=== PATIENT | female | born 1950 | race African-American/Black ===

== ENCOUNTER 2019-06-02 09:40 | Observation (INO) | payer OTHER, MEDICARE ==
--- NOTE | 2019-06-02 10:21 | PDOC ---
Documentation entered by Emmanuelle Fernandez SCRIBE, acting as scribe for Bettina Herrera MD. Bettina Herrera MD: This documentation has been prepared by the Jim lion Adrianna, SCRIBE, under my direction and personally reviewed by me in its entirety. I confirm that the documentation accurately reflects all work, treatment, procedures, and medical decision making performed by me. History of Present Illness - General Chief Complaint: Chest Pain Stated Complaint: LIGHT HEADED Time Seen by Provider: 06/02/19 09:49 History Source: Patient Exam Limitations: No Limitations - History of Present Illness Initial Comments: The patient is a 68 year old female, with a PMH of HTN, HLD, OA, and coronary arteriosclerosis, renal cysts presenting with dizziness and lightheadedness for 4 days. Patient complains of progressively worsening lightheadedness, as if she is going to pass out. Patient reports feeling dizzy, which has made her feel wobbly when she is getting up and walking. Her symptoms are worse with ambulation and alleviated when lying flat. She notes that her symptoms were worse today, and she is unable to walk secondary to her unsteady gait (in fear of falling). Patient endorses associated midsternal chest tightness, sore throat , and headache (which she had intermittently at baseline). Patient reports having a stress test done last month, which she notes was normal. She denies any history of similar symptoms. Denies fever, SOB, palpitation, weakness, N, V, D, abdominal pain, bladder and bowel problems, leg swelling, cough, runny nose, rash, falls, room-spinning, changes in vision, blurred vision, ringing in ears, numbness or tingling of extremities. No sick contacts or travel. No new changes in medications. No suspicious food intake. Allergies: None Past Medical History: as documented in EMR/HPI Social history: Lives with family. No tobacco, ETOH or drug use. Surgical history: None reported Meds: as documented in EMR Family history: noncontributory PMD: Dr. Salamanca Clay Artist: Dr. Helm 06/02/19 11:31 Past History - Past Medical History Allergies/Adverse Reactions: Allergies Allergy/AdvReac Type Severity Reaction Status Date / Time No Known Allergies Allergy Verified 06/02/19 09:45 Home Medications: Ambulatory Orders Alendronate Na [Fosamax (Weekly)] 70 mg PO WEEKLY 11/30/13 Gabapentin 300 mg PO BID 11/30/13 Metoprolol Tartrate [Lopressor -] 100 mg PO DAILY 11/30/13 Oxycodone HCl/Acetaminophen [Percocet 5-325 mg Tablet] 1 combo PO PRN PRN Spironolactone 25 mg PO BID 11/30/13 Telmisartan/Hydrochlorothiazid [Micardis Hct 80-12.5 mg Tablet] 1 each PO DAILY 11/30/13 Verapamil HCl [Verapamil ER] 240 mg PO DAILY 11/30/13 Cholecalciferol (Vitamin D3) [Vitamin D3] 1,000 unit PO DAILY 03/07/15 Meloxicam [Mobic -] 15 mg PO HS 03/07/15 Anemia: No Asthma: No Cancer: No Cardiac Disorders: Yes (CORONARY ARTERIOSCLEROSIS) CVA: No COPD: No CHF: No Dementia: No Diabetes: No GI Disorders: No Disorders: No HTN: Yes Hypercholesterolemia: Yes Liver Disease: No Seizures: No Thyroid Disease: No - Surgical History Abdominal Surgery: No Appendectomy: No Cardiac Surgery: No Cholecystectomy: No Lung Surgery: No Neurologic Surgery: No Orthopedic Surgery: No - Immunization History Immunization Up to Date: Yes - Psycho Social/Smoking Cessation Hx Smoking History: Never smoked Have you smoked in the past 12 months: No Information on smoking cessation initiated: No Hx Alcohol Use: No Drug/Substance Use Hx: No Substance Use Type: None Hx Substance Use Treatment: No Review of Systems - Review of Systems Comments:: Constitutional: no fevers or chills. No weakness HEENT: +Dizziness, causing a wobbly gait. +Sore throat. + headache. No congestion. No visual/hearing disturbances. no eye pain. no ear pain. no blindness. CVS: +Midsternal chest tightness. no syncope. Resp: no sob. No cough. Gastrointestinal: no abdominal pain, nausea or vomiting. Genitourinary: no urinary sx, hematuria. no frequency or urgency. MUSCULOSKELETAL: No joint pain and swelling. No neck or back pain. SKIN: no redness or skin changes, no discharge, no rash. No wounds. Hematologic: no easy bruising/bleeding. NEUROLOGIC: +Dizziness, unsteady gait, imbalance. +Lightheadedness, + Headache. No LOC or altered mental status. No weakness, numbness or tingling. Psych: no anxiety or depression Allergic/Immunologic: no allergies All other systems reviewed and negative, or as documented in HPI. 06/02/19 11:31 06/02/19 11:32 *Physical Exam - Vital Signs Last Vital Signs Temp Pulse Resp BP Pulse Ox 97.8 F 82 19 126/72 99 06/02/19 09:41 06/02/19 09:41 06/02/19 09:41 06/02/19 09:41 06/02/19 09:41 - Physical Exam Comments: General: Well appearing, awake and alert, NAD. HEENT: +Right-sided nystagmus. NCAT, PERRL, clear conjunctiva, anicteric, moist mucus membranes, clear oropharynx, no oral lesions. Neck: neck supple, FROM Resp: CTAB, normal and even respirations, no respiratory distress CVS: RRR, no murmurs, 2+ peripheral pulses throughout, no peripheral edema Abdomen: soft, NTND, no rebound or guarding. No CVAT. Back: nontender, normal inspection and ROM MSK: no edema, HERNANDEZ x4, ROM intact. No clubbing or cyanosis. normal bulk and tone. Extremities: no calf tenderness Neuro: Alert, oriented to person, time and place. No carotid bruit, CN II-XII grossly intact. Strength prox and distally 5/5 throughout. Sensation grossly intact to light touch. HERNANDEZ x4. no dysmetria, bilateral finger to nose and heel to berg equal and symmetric. Speech clear. unstable gait, wobbly. Psych: Calm and cooperative Skin: warm and well perfused, cap refill <2 sec, normal color 06/02/19 11:32 Heart Score/ECG Review #1 ECG reviewed & interpreted by me at: 09:50 General ECG Interpretation: Sinus Rhythm, Normal Rate, Normal Intervals Compared to previous ECG there are: No significant change 06/02/19 10:21 EKG normal sinus rhythm at 77 bpm, no interval abnormalities, narrow QRS, ST and T wave segments and morphology normal. left axis deviation, poor r wave progression. ED Treatment Course - LABORATORY CBC & Chemistry Diagram: 06/02/19 11:18 06/02/19 11:18 - RADIOLOGY Radiology Studies Ordered: Category Date Time Status HEAD CT WITHOUT CONTRAST [CT] Stat CT Scan 06/02/19 10:08 Ordered CHEST PA & LAT [RAD] Stat Radiology 06/02/19 09:50 Ordered Radiograph Interpretation: EXAM#: TYPE/EXAM: RESULT: [id number] CT/HEAD CT WITHOUT CONTRAST REASON FOR THE STUDY. Evaluate for mass, CVA. IMPRESSION: No evidence of acute intracranial hemorrhage. No CT evidence of acute territorial, acute transcortical infarct. Reported By: Jeremiah Mi MD 06/02/19 12:55 Medical Decision Making - Medical Decision Making 06/02/19 10:19 See HPI for details. Prior notes reviewed, including admissions, discharges and consultations. Vital signs reviewed, wnl. Vital Signs Temp Pulse Resp BP Pulse Ox 97.8 F 82 19 126/72 99 06/02/19 09:41 06/02/19 09:41 06/02/19 09:41 06/02/19 09:41 06/02/19 09:41 DDX CVA< post circ stroke, electrolyte/metabolic derangements, ACS, arrhythmia, [employer] lesion/mass laboratory results and imaging reviewed, basic labs and lytes wnl, CXR_no acute chest pathology Cardiac panel_neg, reassuring, doubt cardiac EKG normal sinus rhythm at 77 bpm, no interval abnormalities, narrow QRS, ST and T wave segments and morphology normal. left axis deviation, poor r wave progression. ED course - no events, unable to ambulate due to gait instability and dizziness - consults and recommendations: neurology, Dr Green - discussed case, will see cs note/recs, will come to evaluate. - unsafe for discharge, unable to ambulate no tpa indicated, last normal 4 days ago, NIHSS zero. initial head CT neg for acute abnormalities, CVA/bleed or mass. warrants MRI brain to eval for post circ CVA given neuro sx. Admit for CVA/neuro workup, dizziness, PT eval, neuro cs, gait instability. Discussed results and management plan with pt and family member at bedside, agree with impression, treatment indications, recommendations and plan. s/o to Dr Pollock regarding admission 06/02/19 11:33 06/02/19 12:36 06/02/19 13:09 06/02/19 14:01 Discharge - Discharge Information Problems reviewed: Yes Clinical Impression/Diagnosis: Gait instability, Dizziness Condition: Guarded - Admission Yes - Follow up/Referral - Patient Discharge Instructions - Post Discharge Activity NIH Stroke Scale - Last Known Well Date/Time & Onset Date Last Known Well: 05/30/19 - Initial Evaluation Level of consciousness: Alert Ask patient the month and their age: Answers both correctly Ask patient to open & close eyes; make fist and let go: Obeys both correctly Best gaze (horizontal eye movement): Normal Visual field testing: No visual field loss Facial paresis (Show teeth/raise eyebrows/close eyes tight): Normal symmetrical movement Motor Function: Left Arm: Normal Motor Function: Right Arm: Normal (extends arm 90 (or 45) degrees for 10 seconds without drift Motor Function: Left Leg: Normal (extends leg 30 degrees for 5 seconds without drift) Motor Function: Right Leg: Normal (extends leg 30 degrees for 5 seconds without drift) Limb Ataxia: No ataxia Sensory(Use pinprick test arms,legs,trunk,face/side to side): Normal Best language (Describe picture, name items, read sentences): No Aphasia Dysarthria (read several words): Normal articulation Extinction and Inattention: No abnormality - Total Score NIH Stroke Scale Score: 0
[2019-06-02 11:47] LABS: BASO % 0.9 % (0-2.0); HEMATOCRIT 36.9 % (32.4-45.2); HEMOGLOBIN 12.2 GM/dL (10.7-15.3); MCH 29.9 pg (25.7-33.7); MCHC 33.1 g/dl (32.0-36.0); MEAN CELL VOLUME 90.3 fl (80-96); MEAN PLT VOLUME 7.2 fl (7.5-11.1); NEUT % 69.1 % (42.8-82.8); PLATELET COUNT 315 K/MM3 (134-434); RBC 4.08 M/mm3 (3.60-5.2); RDW 14.1 % (11.6-15.6); WHITE BLOOD COUNT 6.7 K/mm3 (4.0-10.0)
[2019-06-02 12:23] LABS: ALBUMIN 3.6 g/dl (3.4-5.0); BILIRUBIN,TOTAL 0.4 mg/dL (0.2-1); BLOOD UREA NITROGEN 17.2 mg/dL (7-18); CALCIUM 9.3 mg/dL (8.5-10.1); CREATININE 0.9 mg/dL (0.55-1.3); MAGNESIUM 2.2 mg/dL (1.8-2.4); POTASSIUM 4.3 mmol/L (3.5-5.1); TOT PROT 6.8 g/dl (6.4-8.2)
[2019-06-02 15:37] VITALS: BMI 41.5
--- NOTE | 2019-06-02 16:19 | EKG ---
Test Reason : Blood Pressure : / mmHG Vent. Rate : 077 BPM Atrial Rate : 077 BPM P-R Int : 190 ms QRS Dur : 078 ms QT Int : 368 ms P-R-T Axes : 045 -47 -14 degrees QTc Int : 416 ms POOR DATA QUALITY, INTERPRETATION MAY BE ADVERSELY AFFECTED NORMAL SINUS RHYTHM LEFT AXIS DEVIATION VOLTAGE CRITERIA FOR LEFT VENTRICULAR HYPERTROPHY INFERIOR INFARCT , AGE UNDETERMINED ANTERIOR INFARCT , AGE UNDETERMINED ABNORMAL ECG WHEN COMPARED WITH ECG OF 03-MAR-2015 08:32, QRS DURATION HAS DECREASED ANTERIOR INFARCT IS NOW PRESENT INFERIOR INFARCT IS NOW PRESENT ST MORE DEPRESSED INFERIOR LEADS Confirmed by IGLESIA KHAN MD ([id number]) on 06/02/2019 4:19:44 PM Referred By: Confirmed By:IGLESIA KHAN MD
[2019-06-02] MEDS: ACETAMINOPHEN 500 MG TABLET (FP) PO PRN (16:30)
[2019-06-02] MEDS: MECLIZINE HCL 25 MG TABLET (FP) PO SCH ×2 (17:20→23:46)
[2019-06-02] MEDS ORDERED: LORazepam 1 MG TABLET PO ONE (18:15)
[2019-06-02] MEDS ORDERED: LORazepam 1 MG TABLET PO PRN (20:29)
[2019-06-02] MEDS: SPIRONOLACTONE 25 MG TABLET (FP) PO SCH (21:44)
--- NOTE | 2019-06-02 22:35 | CON.NEURO ---
Consult Consult Specialty:: NEUROLOGY-CHRISTINA BENZ - History of Present Illness History of Present Illness: he patient is a 68 year old female, with a PMH of HTN, HLD, OA, and coronary arteriosclerosis, renal cysts presenting with dizziness and lightheadedness for 4 days. Patient complains of progressively worsening lightheadedness, as if she is going to pass out. Patient reports feeling dizzy, which has made her feel wobbly when she is getting up and walking. Her symptoms are worse with ambulation and alleviated when lying flat. She notes that her symptoms were worse today, and she is unable to walk secondary to her unsteady gait (in fear of falling). Patient endorses associated midsternal chest tightness, sore throat , and headache (which she had intermittently at baseline). Patient reports having a stress test done last month, which she notes was normal. She denies any history of similar symptoms. Denies fever, SOB, palpitation, weakness, N, V, D, abdominal pain, bladder and bowel problems, leg swelling, cough, runny nose, rash, falls, room-spinning, changes in vision, blurred vision, ringing in ears, numbness or tingling of extremities. No sick contacts or travel. No new changes in medications. No suspicious food intake. Reports"wobbliness" x 1 week and orthostatic dizziness yesterday and today, not vertigo.Denies all other neurologic symptoms, able to ambulate with unsteadiness. - Past Surgical History Past Surgical History: Yes: None - Alcohol/Substance Use Hx Alcohol Use: No - Smoking History Smoking history: Never smoked Have you smoked in the past 12 months: No Home Medications - Allergies Allergies/Adverse Reactions: Allergies Allergy/AdvReac Type Severity Reaction Status Date / Time No Known Allergies Allergy Verified 06/02/19 09:45 - Home Medications Home Medications: Ambulatory Orders Alendronate Na [Fosamax (Weekly)] 70 mg PO WEEKLY 11/30/13 Spironolactone 25 mg PO BID 11/30/13 Telmisartan/Hydrochlorothiazid [Micardis Hct 80-12.5 mg Tablet] 1 each PO DAILY 11/30/13 Verapamil HCl [Verapamil ER] 240 mg PO DAILY 11/30/13 Physical Exam-Neuro Vital Signs: Vital Signs Temperature 98.3 F 09/26/19 19:54 Pulse Rate 64 06/02/19 19:54 Respiratory Rate 20 06/02/19 19:54 Blood Pressure 102/54 L 06/02/19 19:54 O2 Sat by Pulse Oximetry (%) 100 06/02/19 15:25 Labs: CBC, BMP 06/02/19 11:18 06/02/19 11:18 - Neuro Exam Level Of Consciousness: Yes: Alert, Oriented to Person, Oriented to Place, Oriented to Time Eyes: Yes: CHRISTI Speech: WNL Dominant Hand: Right Mini Mental Exam: Intact DTR's: 0 Left Achilles, 0 Right Achilles, 1+ Left Bicep, 1+ Right Bicep, 1+ Left Tricep, 1+ Right Tricep, 1+ Left Brachioradialis, 1+ Right Brachioradialis Babinski: Absent Response to light touch: Normal Response to pain prick: Normal Response to temperature: Normal Response to vibration: Normal Motor Strength: 5/5: Left Arm, Right Arm, Left Leg, Right Leg Gait: Ataxia (stands on her own, feels unsteady when takes steps) Imaging - Results Cat Scan: Report Reviewed (EXAM#: TYPE/EXAM: RESULT: [id number] CT/HEAD CT WITHOUT CONTRAST REASON FOR THE STUDY. Evaluate for mass, CVA. IMPRESSION: No evidence of acute intracranial hemorrhage. No CT evidence of acute territorial, acute transcortical infarct. Reported By: Jeremiah Mi MD 06/02/19 12:55) Assessment/Plan Pt. with dizziness/lightheadedness upon attaining erect posture acc. by gait ataxia . DDX includes orthostasis 2/2 meds, post. circ. drop in BP 2/2 atherosclerosis. Sugest: MRI/MRA brain , ASA 81mg daily if no GI contraindications, rehab/gait training.Please review antiHTN meds?? causing orthostasis. Thank you, Ramesh Green
[2019-06-03] MEDS: MECLIZINE HCL 25 MG TABLET (FP) PO SCH ×3 (05:56→19:07)
[2019-06-03] MEDS: ACETAMINOPHEN 500 MG TABLET (FP) PO PRN (05:59)
[2019-06-03 07:33] LABS: BASO % 0.9 % (0-2.0); EOS % 3.8 % (0-4.5); HEMATOCRIT 34.9 % (32.4-45.2); HEMOGLOBIN 11.8 GM/dL (10.7-15.3); LYMPH % 33.5 % (8-40); MCH 30.4 pg (25.7-33.7); MCHC 33.9 g/dl (32.0-36.0); MEAN CELL VOLUME 89.7 fl (80-96); MEAN PLT VOLUME 7.2 fl (7.5-11.1); MONO % 8.5 % (3.8-10.2); NEUT % 53.3 % (42.8-82.8); PLATELET COUNT 298 K/MM3 (134-434); RBC 3.89 M/mm3 (3.60-5.2); RDW 14.3 % (11.6-15.6); WHITE BLOOD COUNT 6.8 K/mm3 (4.0-10.0)
[2019-06-03 07:57] LABS: BLOOD UREA NITROGEN 19.7 mg/dL (7-18); CALCIUM 9.3 mg/dL (8.5-10.1); CREATININE 0.8 mg/dL (0.55-1.3); POTASSIUM 4.4 mmol/L (3.5-5.1)
[2019-06-03] MEDS: SPIRONOLACTONE 25 MG TABLET (FP) PO SCH ×2 (09:41→22:10)
[2019-06-03] MEDS ORDERED: PT OWN MED DRAWER 7, Y5N ONE (09:43)
[2019-06-03] MEDS: POLYETHYLENE GLYCOL 3350 119 GM BTL PO SCH (09:52)
[2019-06-03] MEDS ORDERED: VERAPAMIL HCL 240 MG E.R. TABLET PO SCH (10:00)
[2019-06-03] MEDS ORDERED: PATIENT'S OWN MEDICATION (NON-FORMULARY) (Telmisartan/Hydrochlorothiazid [Micardis Hct 80- PO SCH (10:00)
[2019-06-03] MEDS ORDERED: HYDROCHLOROTHIAZIDE 12.5 MG CAPSULE (FP) PO SCH (10:00)
[2019-06-03] MEDS ORDERED: VALSARTAN 160 MG TABLET (UD) PO SCH (10:00)
--- NOTE | 2019-06-03 10:42 | PN ---
Progress Note (short form) - Note Progress Note: 68 y/o female found sitting in bed. States that medicine (antivert) helped a little. However, orthostatic hypotension noted. Pulse fluctuated bet 62-104. Denies BARILLAS, Nausea and vomiting. Vital Signs Period Temp Pulse Resp BP Sys/Stratton Pulse Ox Last 24 Hr 98.0 F-98.5 F 62-104 18-20 90-154/53-66 100-100 CBC, BMP 06/03/19 06:15 06/03/19 06:15 HEENT- NL Neck-Trachea midline Lungs- CTAB Heart- S1/S2 Abd- obese, soft, nt Ext- Trace LE edema rt Active Medications Acetaminophen (Tylenol -) 500 mg PO Q6H PRN PRN Reason: PAIN LEVEL 1-5 Last Admin: 06/03/19 05:59 Dose: 500 mg Lorazepam (Ativan -) 1 mg PO Q8H PRN PRN Reason: INSOMNIA Meclizine HCl (Antivert -) 25 mg PO Q6HPO [facility] Last Admin: 06/03/19 05:56 Dose: 25 mg Polyethylene Glycol (Miralax (For Daily Use) -) 17 gm PO DAILY [facility] Last Admin: 06/03/19 09:52 Dose: Not Given Spironolactone (Aldactone -) 25 mg PO BID [facility] Last Admin: 06/03/19 09:41 Dose: Not Given Valsartan (Diovan -) 160 mg PO DAILY [facility] Verapamil HCl (Calan Sr -) 120 mg PO DAILY [facility] # Dizziness - Head CT neg - MRI neg - MRA pending # Orthostatic hypotension- BP 90/50 -BP/ pulse decrease with position changes - HCTZ dc'd - Cont Spironolactone - Valsartan/ Verapamil dosed decreased by half - Hold all BP meds until systolic > 110 - Montior BP #Anxiety -Ativan prn
[2019-06-03] MEDS: VERAPAMIL HCL 120 MG E.R. TABLET PO SCH (13:42)
[2019-06-03] MEDS: VALSARTAN 160 MG TABLET (UD) PO SCH (13:42)
--- NOTE | 2019-06-03 20:48 | HP ---
Admitting History and Physical - Admission History of Present Illness: The patient is a 68 year old female, with a PMH of HTN, HLD, OA, and coronary arteriosclerosis, renal cysts presenting with dizziness and lightheadedness for 4 days. Patient complains of progressively worsening lightheadedness, as if she is going to pass out. Patient reports feeling dizzy, which has made her feel wobbly when she is getting up and walking. Her symptoms are worse with ambulation and alleviated when lying flat. She notes that her symptoms were worse today, and she is unable to walk secondary to her unsteady gait (in fear of falling). Patient endorses associated midsternal chest tightness, sore throat , and headache (which she had intermittently at baseline). Patient reports having a stress test done last month, which she notes was normal. She denies any history of similar symptoms. Denies fever, SOB, palpitation, weakness, N, V, D, abdominal pain, bladder and bowel problems, leg swelling, cough, runny nose, rash, falls, room-spinning, changes in vision, blurred vision, ringing in ears, numbness or tingling of extremities. No sick contacts or travel. No new changes in medications. No suspicious food intake. History Source: Patient, Medical Record Limitations to Obtaining History: No Limitations - Past Medical History Cardiovascular: Yes: HTN, Hyperlipdemia Reproductive: Yes: Postmenopausal Musculoskeletal: Yes: Osteoarthritis - Past Surgical History Past Surgical History: Yes: None - Smoking History Smoking history: Never smoked Have you smoked in the past 12 months: No - Alcohol/Substance Use Hx Alcohol Use: No History of Substance Use: reports: None - Social History ADL: Independent History of Recent Travel: No Home Medications - Allergies Allergies/Adverse Reactions: Allergies Allergy/AdvReac Type Severity Reaction Status Date / Time No Known Allergies Allergy Verified 06/02/19 09:45 - Home Medications Home Medications: Ambulatory Orders Alendronate Na [Fosamax (Weekly)] 70 mg PO WEEKLY 11/30/13 Spironolactone 25 mg PO BID 11/30/13 Telmisartan/Hydrochlorothiazid [Micardis Hct 80-12.5 mg Tablet] 1 each PO DAILY 11/30/13 Verapamil HCl [Verapamil ER] 240 mg PO DAILY 11/30/13 Review of Systems - Review of Systems Constitutional: reports: No Symptoms, Weakness. denies: Chills, Diaphoresis, Fever Eyes: reports: No Symptoms, Blind Spots HENT: reports: No Symptoms Neck: reports: No Symptoms Cardiovascular: reports: No Symptoms Gastrointestinal: reports: No Symptoms Genitourinary: reports: No Symptoms Breasts: reports: No Symptoms Reported Musculoskeletal: reports: No Symptoms Integumentary: reports: No Symptoms Neurological: reports: No Symptoms Endocrine: reports: No Symptoms Hematology/Lymphatic: reports: No Symptoms Physical Examination Vital Signs: Vital Signs Temperature 98.0 F 06/03/19 03:46 Pulse Rate 80 06/03/19 14:18 Respiratory Rate 18 06/03/19 09:54 Blood Pressure 84/48 L 06/03/19 14:18 O2 Sat by Pulse Oximetry (%) 100 06/03/19 09:00 Constitutional: Yes: Well Nourished, No Distress, Anxious, Obese Labs: CBC, BMP 06/03/19 06:15 06/03/19 06:15 Problem List - Problems (1) Dizziness Code(s): R42 - DIZZINESS AND GIDDINESS (2) Gait instability Code(s): R26.81 - UNSTEADINESS ON FEET (3) HTN (hypertension) Code(s): I10 - ESSENTIAL (PRIMARY) HYPERTENSION (4) Osteoarthritis Code(s): M19.90 - UNSPECIFIED OSTEOARTHRITIS, UNSPECIFIED SITE (5) Orthostatic hypotension Code(s): I95.1 - ORTHOSTATIC HYPOTENSION
[2019-06-04] MEDS: MECLIZINE HCL 25 MG TABLET (FP) PO SCH ×3 (00:04→13:51)
[2019-06-04 07:51] LABS: BASO % 0.7 % (0-2.0); EOS % 4.2 % (0-4.5); HEMOGLOBIN 11.4 GM/dL (10.7-15.3); MCH 30.1 pg (25.7-33.7); MCHC 33.4 g/dl (32.0-36.0); MEAN PLT VOLUME 7.1 fl (7.5-11.1); NEUT % 51.1 % (42.8-82.8); PLATELET COUNT 278 K/MM3 (134-434); RBC 3.78 M/mm3 (3.60-5.2); RDW 14.1 % (11.6-15.6); WHITE BLOOD COUNT 7.2 K/mm3 (4.0-10.0)
[2019-06-04 08:19] LABS: BLOOD UREA NITROGEN 21.9 mg/dL (7-18); CALCIUM 8.9 mg/dL (8.5-10.1); CREATININE 0.8 mg/dL (0.55-1.3); POTASSIUM 4.4 mmol/L (3.5-5.1)
[2019-06-04] MEDS: ACETAMINOPHEN 500 MG TABLET (FP) PO PRN ×2 (09:42→21:26)
[2019-06-04] MEDS: SPIRONOLACTONE 25 MG TABLET (FP) PO SCH (09:42)
[2019-06-04] MEDS: VALSARTAN 160 MG TABLET (UD) PO SCH (09:43)
[2019-06-04] MEDS: VERAPAMIL HCL 120 MG E.R. TABLET PO SCH (09:43)
[2019-06-04] MEDS: POLYETHYLENE GLYCOL 3350 119 GM BTL PO SCH (09:43)
[2019-06-04] MEDS ORDERED: VALSARTAN 160 MG TABLET (UD) PO SCH (14:01)
--- NOTE | 2019-06-04 14:16 | PN ---
Progress Note (short form) - Note Progress Note: seen and examined in room family at bedside daughter Nieves in attendance all results discussed with daughter and patient reports feeling "better " but still get dizzy, even when sitting admits weight loss over last several months intentional (> 30 lbs weight loss ) also admits increased compliance with diet Vital Signs Period Temp Pulse Resp BP Sys/Stratton Pulse Ox Last 24 Hr 98.1 F-98.9 F 67-110 17-18 84-117/48-71 100-100 Bp meds have been on hold -- order in place to hold for Systolic Bp less than 110 denies spinning sensation was able to walk the hallway with PT but reports "got a little dizzy" laying in bed NAD / comfortable neck supple heart S1/S2 reg lungs clear bilat abd soft nontender ext non edema CBC, BMP 06/04/19 07:00 06/04/19 07:00 Carotid doppler- neg MRI with MRA - neg for acute path CT of head - neg Active Medications Acetaminophen (Tylenol -) 500 mg PO Q6H PRN PRN Reason: PAIN LEVEL 1-5 Last Admin: 06/04/19 09:42 Dose: 500 mg Lorazepam (Ativan -) 1 mg PO Q8H PRN PRN Reason: INSOMNIA Last Admin: 06/03/19 17:31 Dose: 1 mg Polyethylene Glycol (Miralax (For Daily Use) -) 17 gm PO DAILY [facility] Last Admin: 06/04/19 09:43 Dose: Not Given Spironolactone (Aldactone -) 25 mg PO DAILY [facility] Valsartan (Diovan -) 160 mg PO DAILY [facility] BP meds to be given when SBP over 110 Assmt / plan # Dizziness - Head CT neg / MRI / MRA /carotid dopppler and neuro note reviewed no significant findings - symptoms not consistent with vertigo -- will d/c antivert # Orthostatic hypotension- BP 90/50 has not recieved Bp meds > 24 hours weight loss has decreased need for current doses of Bp meds and admits poor compliance with diet until recently =will resume BP meds at lower dosing and less meds once BP stabilizes # CAD had recent cardiac work up 04/2019 -- all negative # OA continue weight loss recommendation and exercise as out patient will need continued medication adjustment discussed with patient and daughter #Anxiety -Ativan prn Problem List - Problems (1) Dizziness Code(s): R42 - DIZZINESS AND GIDDINESS (2) Gait instability Code(s): R26.81 - UNSTEADINESS ON FEET (3) HTN (hypertension) Code(s): I10 - ESSENTIAL (PRIMARY) HYPERTENSION (4) Osteoarthritis Code(s): M19.90 - UNSPECIFIED OSTEOARTHRITIS, UNSPECIFIED SITE (5) Orthostatic hypotension Code(s): I95.1 - ORTHOSTATIC HYPOTENSION
--- NOTE | 2019-06-04 16:57 | PN ---
Progress Note (short form) - Note Progress Note: Pts. condition improved, she reports minimal lightheadedness. Exam- minimal hesitant speech. MRI without acute abn. A/P: lightheadedness 2/2 antiHTN meds, meds now being adjusted with improvement. gait difficulty improved markedly. rehab/PT as outpt.
[2019-06-05 06:36] VITALS: BP 110/59; PULSE 66; TEMP 98.3
[2019-06-05 08:48] LABS: EOS % 4.6 % (0-4.5); HEMATOCRIT 34.6 % (32.4-45.2); HEMOGLOBIN 11.5 GM/dL (10.7-15.3); LYMPH % 29.9 % (8-40); MCHC 33.1 g/dl (32.0-36.0); MEAN CELL VOLUME 90.5 fl (80-96); MEAN PLT VOLUME 7.4 fl (7.5-11.1); NEUT % 54.5 % (42.8-82.8); PLATELET COUNT 278 K/MM3 (134-434); RBC 3.83 M/mm3 (3.60-5.2); RDW 14.2 % (11.6-15.6); WHITE BLOOD COUNT 6.6 K/mm3 (4.0-10.0)
[2019-06-05 09:09] LABS: CALCIUM 8.8 mg/dL (8.5-10.1); CREATININE 0.7 mg/dL (0.55-1.3); POTASSIUM 4.1 mmol/L (3.5-5.1)
[2019-06-05] MEDS ORDERED: SPIRONOLACTONE 25 MG TABLET (FP) PO SCH (10:00)
[2019-06-05] MEDS: POLYETHYLENE GLYCOL 3350 119 GM BTL PO SCH (10:21)
--- NOTE | 2019-06-05 12:01 | DS ---
Physical Examination Vital Signs: Vital Signs Temperature 98.3 F 06/05/19 06:05 Pulse Rate 66 06/05/19 06:05 Respiratory Rate 18 06/05/19 06:05 Blood Pressure 110/59 L 06/05/19 06:05 O2 Sat by Pulse Oximetry (%) 100 06/05/19 04:00 Findings/Remarks: The patient is a 68 year old female, with a PMH of HTN, HLD, OA, and coronary arteriosclerosis, renal cysts presenting with dizziness and lightheadedness for 4 days. Patient complains of progressively worsening lightheadedness, as if she is going to pass out. Patient reports feeling dizzy, which has made her feel wobbly when she is getting up and walking. Her symptoms are worse with ambulation and alleviated when lying flat. She notes that her symptoms were worse today, and she is unable to walk secondary to her unsteady gait Patient was evaluated by neurology. MRA / MRI / CT of head / carotid dopplers all done during hospital stay all negative for acute pathology. Cardiac work up was done as out patient 1 month prior to hospitalization. Patient reports has been loosing weight intentionally and has lost approximately 30 lbs. During hospital stay she was noted to be hypotensive-- all Bp meds on hold-- with appropriate Bp. On day of d/c bp 117/74 sitting and 117/67 standing -- and was able to walk the hallway without assistance. POC was discussed with patient -- she is to hold all Bp meds and follow up at office with multiple Bp reading from home-- medication will be resumed as needed. She has scheduled appointment Thursday ay 945 am. Constitutional: Yes: Well Nourished, No Distress, Calm, Obese Eyes: Yes: Conjunctiva Clear, EOM Intact HENT: Yes: Atraumatic, Normocephalic Neck: Yes: Supple, Trachea Midline Cardiovascular: Yes: Regular Rate and Rhythm (Hr 70s-86) Respiratory: Yes: Regular, CTA Bilaterally Gastrointestinal: Yes: Normal Bowel Sounds, Soft, Abdomen, Obese ...Rectal Exam: Yes: Deferred Breast(s): Yes: WNL Musculoskeletal: Yes: WNL Extremities: Yes: WNL Edema: No Peripheral Pulses WNL: Yes Integumentary: Yes: WNL Neurological: Yes: Alert, Oriented. No: Ataxia, Confusion, Weakness ...Motor Strength: WNL Psychiatric: Yes: WNL, Alert, Oriented Labs: CBC, BMP 06/05/19 07:27 06/05/19 07:27 Discharge Summary Reason For Visit: DIZZINESS,UNSTEADY GAIT Current Active Problems Dizziness (Acute) Gait instability (Acute) HTN (hypertension) (Acute) Orthostatic hypotension (Acute) Osteoarthritis (Acute) Condition: Improved - Instructions Diet, Activity, Other Instructions: instructed to continue with current diet and weight loss Bp monitoring 2-3 daily and document bring log to next appointment Disposition: HOME - Home Medications Comprehensive Discharge Medication List: Ambulatory Orders Alendronate Na [Fosamax (Weekly)] 70 mg PO WEEKLY 11/30/13 ASA 81 mg q day
== END 2019-06-05 13:28 | disposition home or self-care (01) ==
LOC: JER 09:40 → JERBED 13:11 → INTOOBSV 13:11 → J7W 15:09
PROVIDERS: ADMIT Family Medicine; ATTEND Family Medicine
DX: I95.1 Orthostatic hypotension (principal); R26.89 Other abnormalities of gait and mobility; R42 Dizziness and giddiness; I10 Essential (primary) hypertension; E78.5 Hyperlipidemia, unspecified; M19.90 Unspecified osteoarthritis, unspecified site; I25.10 Atherosclerotic heart disease of native coronary artery without angina pectoris; N28.1 Cyst of kidney, acquired
CPT/HCPCS: 36415; 70450-TC; 70544-TC; 70551-TC; 80048; 80053; 80061; 82550; 83036; 83721; 83735; 84100; 84443; 84484; 85025; 93005; 93010; 93880-TC; 97116-GP; 97161-GP; 99283-25; G0378

== ENCOUNTER 2021-07-10 04:36 | Day surgery (SDC) | payer OTHER, MEDICARE ==
[2021-07-09 18:05] VITALS: BMI 44.6
[2021-07-10] MEDS ORDERED: EPINEPHrine/PF 1 MG/1 ML (1:1,000) AMPULE ONE (07:19)
[2021-07-10] MEDS ORDERED: BUPIVACAINE HCL/PF 0.75% 10 ML VIAL ONE (07:19)
[2021-07-10] MEDS ORDERED: TRYPAN BLUE 0.5 ML DISP.SYRIN ONE (07:19)
[2021-07-10] MEDS ORDERED: LIDOCAINE HCL/PF 1% SDV 5ML VIAL ONE (07:19)
[2021-07-10] MEDS ORDERED: LIDOCAINE HCL/PF 2% SDV 5ML VIAL ONE (07:19)
[2021-07-10] MEDS ORDERED: CHONDROITIN SU A/HYALUR SOD 1 KIT ONE (07:45)
[2021-07-10] MEDS ORDERED: ACETAMINOPHEN 325 MG TABLET (FP) PO PRN (08:19)
[2021-07-10] MEDS ORDERED: CYCLOPENTOLATE HCL 1% OPHTH SOLN 2 ML BOTTLE OP SCH (08:30)
[2021-07-10] MEDS ORDERED: KETOROLAC TROMETHAMINE 0.5% EYE DROP 1 DROP DROPS OP SCH (08:30)
[2021-07-10] MEDS ORDERED: OFLOXACIN 0.3% OPHTHALMIC SOLUTION 5 ML BOTTLE OP SCH (08:30)
[2021-07-10] MEDS ORDERED: TROPICAMIDE 1% OPHTH SOLN 15 ML BOTTLE OP SCH (08:30)
[2021-07-10] MEDS ORDERED: PHENYLEPHRINE 2.5% OPHTH SOLN 15 ML BOTTLE OP SCH (08:30)
[2021-07-10] MEDS ORDERED: TROPICAMIDE 1% OPHTH SOLN 15 ML BOTTLE ONE (10:04)
[2021-07-10] MEDS ORDERED: OFLOXACIN 0.3% OPHTHALMIC SOLUTION 5 ML BOTTLE ONE (10:04)
[2021-07-10] MEDS ORDERED: CYCLOPENTOLATE HCL 1% OPHTH SOLN 2 ML BOTTLE ONE (10:04)
[2021-07-10] MEDS ORDERED: PHENYLEPHRINE 2.5% OPTHALMIC DROP BOTTLE ONE (10:04)
[2021-07-10] MEDS ORDERED: KETOROLAC TROMETHAMINE 0.5% EYE DROP 1 DROP DROPS ONE (10:04)
[2021-07-10] MEDS ORDERED: CYCLOPENTOLATE HCL 1% OPHTH SOLN 2 ML BOTTLE OS ONE ×3 (10:20→10:30)
[2021-07-10] MEDS ORDERED: KETOROLAC TROMETHAMINE 0.5% EYE DROP 1 DROP DROPS OS ONE ×3 (10:20→10:30)
[2021-07-10] MEDS ORDERED: PHENYLEPHRINE 2.5% OPHTH SOLN 15 ML BOTTLE OS ONE ×3 (10:20→10:30)
[2021-07-10] MEDS ORDERED: TROPICAMIDE 1% OPHTH SOLN 15 ML BOTTLE OS ONE ×3 (10:20→10:30)
[2021-07-10] MEDS ORDERED: OFLOXACIN 0.3% OPHTHALMIC SOLUTION 5 ML BOTTLE OS ONE ×3 (10:20→10:30)
[2021-07-10] MEDS ORDERED: POVIDONE-IODINE 5% OPHTHALMIC PREP 30 ML SOLUTION ONE (11:15)
[2021-07-10] MEDS ORDERED: MIDAZOLAM HCL 2 MG/2 ML SINGLE DOSE VIAL ONE (11:27)
[2021-07-10] MEDS ORDERED: ONDANSETRON 4 MG/2 ML VIAL IVPUSH PRN (11:29)
[2021-07-10] MEDS ORDERED: LACTATED RINGERS SOLUTION 1,000 ML IV SCH (11:30)
[2021-07-10] MEDS ORDERED: PROPOFOL 20 ML ONE (11:41)
[2021-07-10] MEDS ORDERED: LIDOCAINE HCL/PF 2% SDV 5ML VIAL PNB ONE ×2 (11:50)
[2021-07-10] MEDS ORDERED: BUPIVACAINE HCL/PF 0.75% 10 ML VIAL PNB ONE ×2 (11:50)
[2021-07-10] MEDS ORDERED: CHONDROITIN SU A/HYALUR SOD 1 KIT IO ONE (11:56)
[2021-07-10] MEDS ORDERED: TETRACAINE 0.5% OPHTH SOLN 2 ML BOTTLE OS ONE (11:56)
[2021-07-10] MEDS ORDERED: EPINEPHrine/PF 1 MG/1 ML (1:1,000) AMPULE IC ONE (11:56)
[2021-07-10] MEDS ORDERED: LIDOCAINE HCL 1% PRESERVATIVE FREE - 30ML VIAL IO ONE (11:56)
[2021-07-10 13:16] VITALS: BP 145/64; PULSE 80; TEMP 98
== END 2021-07-10 13:20 | disposition home or self-care (01) ==
LOC: JASU-SURG 04:36
PROVIDERS: ATTEND Ophthalmology
PROC: 08RK3JZ Replacement of Left Lens with Synthetic Substitute, Percutaneous Approach (ICD-10-PCS; principal; 2021-07-10 12:00)
DX: H26.9 Unspecified cataract (principal); I10 Essential (primary) hypertension

== ENCOUNTER 2021-07-24 04:36 | Day surgery (SDC) | payer OTHER, MEDICARE ==
[2021-07-22 11:42] VITALS: BMI 46.0
[~2021-07-24 04:36] MED LIST: ACETAMINOPHEN 325 MG TABLET (FP) PO PRN; CYCLOPENTOLATE HCL 1% OPHTH SOLN 2 ML BOTTLE OP SCH; KETOROLAC TROMETHAMINE 0.5% EYE DROP 1 DROP DROPS OP SCH; OFLOXACIN 0.3% OPHTHALMIC SOLUTION 5 ML BOTTLE OP SCH; PHENYLEPHRINE 2.5% OPHTH SOLN 15 ML BOTTLE OP SCH; TROPICAMIDE 1% OPHTH SOLN 15 ML BOTTLE OP SCH
[2021-07-24] MEDS ORDERED: LIDOCAINE HCL/PF 2% SDV 5ML VIAL ONE (07:30)
[2021-07-24] MEDS ORDERED: BUPIVACAINE HCL/PF 0.75% 10 ML VIAL ONE (07:30)
[2021-07-24] MEDS ORDERED: LIDOCAINE HCL/PF 1% SDV 5ML VIAL ONE (07:31)
[2021-07-24] MEDS ORDERED: POVIDONE-IODINE 5% OPHTHALMIC PREP 30 ML SOLUTION ONE (07:31)
[2021-07-24] MEDS ORDERED: KETOROLAC TROMETHAMINE 0.5% EYE DROP 1 DROP DROPS ONE (09:18)
[2021-07-24] MEDS ORDERED: OFLOXACIN 0.3% OPHTHALMIC SOLUTION 5 ML BOTTLE ONE (09:18)
[2021-07-24] MEDS ORDERED: PHENYLEPHRINE 2.5% OPTHALMIC DROP BOTTLE ONE (09:18)
[2021-07-24] MEDS ORDERED: TROPICAMIDE 1% OPHTH SOLN 15 ML BOTTLE ONE (09:18)
[2021-07-24] MEDS ORDERED: CYCLOPENTOLATE HCL 1% OPHTH SOLN 2 ML BOTTLE ONE (09:18)
[2021-07-24] MEDS ORDERED: PROPOFOL 20 ML ONE (10:04)
[2021-07-24] MEDS ORDERED: BUPIVACAINE HCL/PF 0.75% 10 ML VIAL RB ONE (10:11)
[2021-07-24] MEDS ORDERED: POVIDONE-IODINE 5% OPHTHALMIC PREP 30 ML SOLUTION OD ONE (10:13)
[2021-07-24] MEDS ORDERED: LIDOCAINE HCL/PF 2% SDV 5ML VIAL INF ONE (10:13)
[2021-07-24] MEDS ORDERED: BSS (NA/CA/MG/K) BALANCED SALT SOLUTION OPHTH SOLN 15 ML BOTTLE OD ONE (10:13)
[2021-07-24] MEDS ORDERED: LIDOCAINE 1% P/F 10 MG/ML VIAL INF ONE (10:14)
[2021-07-24] MEDS ORDERED: LIDOCAINE HCL 1% PRESERVATIVE FREE - 30ML VIAL IO ONE (10:14)
[2021-07-24] MEDS ORDERED: ONDANSETRON 4 MG/2 ML VIAL IVPUSH PRN (10:22)
[2021-07-24] MEDS ORDERED: EPINEPHrine/PF 1 MG/1 ML (1:1,000) AMPULE SQ ONE (10:27)
[2021-07-24] MEDS ORDERED: LACTATED RINGERS SOLUTION 1,000 ML IV SCH (10:30)
[2021-07-24] MEDS ORDERED: ACETAMINOPHEN 325 MG TABLET (FP) ONE (11:06)
[2021-07-24 11:20] VITALS: PULSE 63; TEMP 97.8
[2021-07-24 13:16] VITALS: BP 108/61
== END 2021-07-24 12:00 | disposition home or self-care (01) ==
LOC: JASU-SURG 04:36
PROVIDERS: ATTEND Ophthalmology
PROC: 08RJ3JZ Replacement of Right Lens with Synthetic Substitute, Percutaneous Approach (ICD-10-PCS; principal; 2021-07-24 10:00)
DX: H26.9 Unspecified cataract (principal)